=== PATIENT | male | born 1975 | race Caucasian/White ===

== ENCOUNTER → 2021-06-03 11:07 | Outpatient (CLI) | payer BC, SELFPAY ==
--- NOTE | ~2021-06-03 | MR_ITS ---
EXAMINATION: MR lumbar spine wo con DATE: 06/03/2021 11:46 INDICATION: Low back pain with sciatica. TECHNIQUE: Magnetic resonance imaging (MRI) of the lumbar spine was performed without intravenous con trast. Sequences included sagittal T2-weighted FSE, sagittal T2-weighted FS FSE, sagittal T1-weighted FSE, and axial T2-weighted FSE. COMPARISON: None FINDINGS: There is 5 degrees dextrocurvature of thoracolumbar spine. There are Schmorl's nodes at all levels. There is mildly decreased disc height at L4-L5. The distal spinal cord signal intensity is n ormal. The conus medullaris is at L1-L2. The following disc levels are specifically discussed: L1-L2: The disc is bulging. There is mild bilateral facet joint osteoarthritis. There is mild right a nd moderate left neural foraminal stenosis. There is mild central canal stenosis. L2-L3: The disc is mildly bulging. There is mild bilateral facet joint osteoarthritis. There is mild bilateral neural foraminal stenosis. There is no central canal stenosis. L3-L4: The disc is mildly bulging. There is moderate bilateral facet joint osteoarthritis. There is m ild bilateral neural foraminal stenosis. There is mild central canal stenosis. L4-L5: The disc is bulging and has an annular fissure. There is mild bilateral facet joint osteoarthr itis. There is moderate right and mild left neural foraminal stenosis. There is mild central canal st enosis. L5-S1: The disc is mildly bulging. There is mild bilateral facet joint osteoarthritis. There is mild left neural foraminal stenosis. There is mild central canal stenosis. IMPRESSION: 1. Moderate lumbar spondylosis. Reviewed, dictated and finalized at location A.
== END ==
PROVIDERS: PCP Internal Medicine; Visit Provider Physician Assistant Medical
DX: M54.40 Lumbago with sciatica, unspecified side (principal); M47.816 Spondylosis without myelopathy or radiculopathy, lumbar region
CPT/HCPCS: 72148

== ENCOUNTER 2023-07-10 11:05 | Outpatient (CLI) | payer BC, SELFPAY ==
--- NOTE | ~2023-07-10 | US_ITS ---
. US venous doppler [facility] DATE: 07/10/2023 11:48 INDICATION: Left lower leg pain TECHNIQUE: Real-time and color flow imaging and Doppler analysis of the veins of the left lower extre mity COMPARISON: None FINDINGS: The left greater saphenous vein is patent. There is spontaneous and phasic flow and normal augmentation and compression of the deep veins of the left lower extremity. IMPRESSION: No evidence of deep venous thrombosis of the left lower extremity Reviewed, dictated and finalized at Location A. Reviewed, dictated and finalized at location L.
[2023-07-10 12:19] LABS: Basophils Percent Auto 0.3 % (0.2-1.2); Eosinophils Absolute Auto 0.1 K/mm3 (0-0.3); Eosinophils Percent Auto 0.7 % (0-4.4); Hematocrit 48.6 % (42.0-52.0); Hemoglobin 16.5 g/dL (14.0-18.0); Immature Granulocyte Absolute 0.04 K/mm3 (0.00-0.031); Immature Granulocyte Percent A 0.5 % (0-0.5); Lymphocytes Percent Auto 17.2 % (18.3-44.2); Mean Corpuscular Volume 94.2 fl (80-100); Mean Platelet Volume 9.4 fl (7.4-10.4); Monocytes Absolute Auto 0.9 K/mm3 (0.1-0.6); Monocytes Percent Auto 11.9 % (2.6-8.5); Neutrophils Absolute Auto 5.3 K/mm3 (1.3-6.7); Neutrophils Percent Auto 69.4 % (45.5-73.1); Platelet Count Result 243 k/mm3 (150-375); Red Blood Count 5.16 M/mm3 (4.6-6.20); Red Cell Distribution Width 12.2 % (11.5-14.5); White Blood Count 7.6 K/mm3 (4.5-10.0)
[2023-07-10 12:33] LABS: Alanine Aminotransferase 21 U/L (6-50); Albumin Level 4.3 g/dL (3.5-5.1); Alkaline Phosphatase 65 U/L (38-126); Anion Gap 6 mmol/L (8-16); Aspartate Amino Transferase 30 U/L (17-59); Bilirubin,Total 0.8 mg/dL (0.2-1.3); Blood Urea Nitrogen 14 mg/dL (9-20); Calcium 9.3 mg/dL (8.4-10.2); Carbon Dioxide 30 mmol/L (22-30); Chloride 94 mmol/L (98-107); Estimated Glomerular Filt Rate > 60; Glucose 100 mg/dL (65-110); Lactate Dehydrogenase 210 U/L (120-246); Potassium 3.7 mmol/L (3.4-5.0); Sodium 130 mmol/L (137-145)
== END 2023-07-10 11:06 | disposition home or self-care (01) ==
PROVIDERS: PCP Physician Assistant Medical; Visit Provider Physician Assistant Medical
DX: L03.116 Cellulitis of left lower limb (principal); M79.89 Other specified soft tissue disorders; M79.662 Pain in left lower leg
CPT/HCPCS: 36415; 80053; 83615; 85025; 93971

== ENCOUNTER 2023-07-11 12:34 | Observation (INO) | payer BC, SELFPAY ==
[2023-07-11] VITALS (16 sets, daily range): BP systolic 118–149; BP diastolic 80–88; PULSE 69–76; RESP 16–19; TEMP 36.3–36.7; O2SAT 96–100; BMI 29.1
[2023-07-11 13:28] LABS: Basophils Percent Auto 0.3 % (0.2-1.2); Eosinophils Percent Auto 0.4 % (0-4.4); Hematocrit 45.8 % (42.0-52.0); Hemoglobin 15.8 g/dL (14.0-18.0); Immature Granulocyte Absolute 0.03 K/mm3 (0.00-0.031); Immature Granulocyte Percent A 0.4 % (0-0.5); Lymphocytes Absolute Auto 1.27 K/mm3 (0.9-3.2); Lymphocytes Percent Auto 17.1 % (18.3-44.2); Mean Corpuscular HGB Conc 34.5 g/dl (32-36); Mean Corpuscular Hemoglobin 32.4 pg (26-34); Mean Corpuscular Volume 93.9 fl (80-100); Mean Platelet Volume 8.9 fl (7.4-10.4); Monocytes Absolute Auto 1.3 K/mm3 (0.1-0.6); Monocytes Percent Auto 17.3 % (2.6-8.5); Neutrophils Absolute Auto 4.8 K/mm3 (1.3-6.7); Neutrophils Percent Auto 64.5 % (45.5-73.1); Platelet Count Result 278 k/mm3 (150-375); Red Blood Count 4.88 M/mm3 (4.6-6.20); Red Cell Distribution Width 12.3 % (11.5-14.5); White Blood Count 7.4 K/mm3 (4.5-10.0)
--- NOTE | 2023-07-11 13:36 | ED.EXTPRO ---
HPI - Extremity Problem General Chief complaint: Extremity Problem,Nontraumatic Stated complaint: left leg red and swelling Time Seen by Provider: 07/11/23 12:48 History of Present Illness HPI Narrative: Patient is a 48-year-old male who presents ER with discoloration of his left lower extremity. It is located mainly over the turk. He developed 3 days ago. He saw his PCP yesterday and received an injection of Rocephin. He returns today to have a second injection but his primary care physician decided he needed to come to the ER for further evaluation. They did draw a line around the area yesterday and it does appear that the redness has spread beyond the margins. He is having no fevers or chills or sweats. The skin is tender and blanching and warm. It is not weeping. There are areas of bruising noted. Patient denies any trauma to his leg. He had an ultrasound yesterday to rule out a DVT. Related Data Allergies Allergy/AdvReac Type Severity Reaction Status Date / Time fexofenadine [From Mahnaz-D] AdvReac Unknown Headache Verified 07/11/23 18:44 pseudoephedrine AdvReac Unknown Headache Verified 07/11/23 18:44 [From Mahnaz-D] penicillin Allergy Unknown Unknown Uncoded 07/11/23 11:42 Review of Systems Review of Systems: All systems reviewed & are unremarkable except as noted in HPI and below Constitutional: Constitutional: Denies chills, Denies fatigue and Denies fever(s) ENT: Denies nasal congestion and Denies sore throat Cardiovascular: Cardiovascular: Denies chest pain, Denies rapid heart rate and Denies radiating jaw, neck or arm pain Respiratory: Respiratory: Denies cough and Denies dyspnea Gastrointestinal: Gastrointestinal: Denies abdominal pain, Denies nausea and Denies vomiting Integumentary/Breasts: Skin/Breast: Denies pruritus, Reports erythema, Reports rash and Denies skin ulcer PMFSH Past Medical History Medical History Anxiety Depression Neuropathy Thrombophlebitis of right leg (~2019) Surgical History Surgical History History of neck surgery C5-6 disc replacement Social History Social History Smoking packs per day: 0.5 Smoking cigarettes per day: 10.0 Years smoked: 20 Smoking pack-years: 10.00 Smoking status: Light tobacco smoker Tobacco type: cigarettes Second hand tobacco smoke exposure: Yes Smoking end date: 09/10/09 Alcohol intake: never Drinks per week: 12 Substance use: never Substance use type: does not use Lack of Transportation: No Lack of Food: Never True Current Housing: I Have Housing Concerned About Future Housing: No Difficulty Paying Gas/Electric Bills: No Difficulty Paying for Meds: No Currently Unemployed: No Education: Don't Know Difficulty w/ Childcare or Family Care: No Living arrangements: with family Occupation/Education: occupation Gender identity (if verbalized by the patient): Male Sexual Orientation (if Verbalized by the Patient): Straight or Heterosexual Spiritual care concerns: No Exam Narrative: GENERAL: Well-appearing, well-nourished, and in no acute distress. HEAD: Normocephalic, atraumatic. ENT: Mucous membranes moist. CHEST: Clear to auscultation. No respiratory distress. HEART: Regular rate and rhythm. Normal peripheral pulses. ABDOMEN: Soft, nontender, nondistended. EXTREMITIES: Normal range of motion. No edema. SKIN: Warm, dry. Erythematous blanching rash to the left turk extending beyond the previously marked margins. No vesicles or pustules. The central area does demonstrate some bruising. There is 1 large confluent area but then a few separate patches that extend off from it. No lymphangitic streaking. NEURO: Alert and oriented x3. PSYCH: Normal mood and affect. Course Course Emergency Course: Admit for failure o
[2023-07-11 13:39] LABS: Alanine Aminotransferase 21 U/L (6-50); Alkaline Phosphatase 66 U/L (38-126); Anion Gap 5 mmol/L (8-16); Aspartate Amino Transferase 26 U/L (17-59); Bilirubin,Total 0.8 mg/dL (0.2-1.3); Blood Urea Nitrogen 9 mg/dL (9-20); Calcium 9.2 mg/dL (8.4-10.2); Carbon Dioxide 31 mmol/L (22-30); Chloride 98 mmol/L (98-107); Estimated CRCL calculation 88 ml/min; Estimated Glomerular Filt Rate > 60; Glucose 95 mg/dL (65-110); Potassium 3.7 mmol/L (3.4-5.0); Sodium 134 mmol/L (137-145)
[2023-07-11 14:48] LABS: Prothrombin Time 13.4 Seconds (11.1-14.7)
[2023-07-11 14:49] LABS: Partial Thromboplastin Time 32.8 SECONDS (22.3-36.8)
--- NOTE | 2023-07-11 18:42 | ADMGEN ---
This patient, Travis Martinez, was admitted to 2 Medical Room 259-01. Patient/family oriented to hospital policies and general routines including ID bracelet, bed and alarms, visiting hours, pain management, procedures, bathroom and other care routines, personal items, smoking policy, room service/diet, and visiting hours. Information on how to activate the Rapid Response Team has been discussed. Patient/Family are encouraged to report perceived risks to care and to ask questions if they do not understand what they are told or what they should do.
--- NOTE | 2023-07-11 20:58 | PM.IMHP ---
H&P: HPI History of Present Illness Date/Time: 07/11/23 20:58 Chief Complaint: Left lower extremity redness, failed outpatient antibiotic therapy Narrative: HPI Narrative: Patient is a 48-year-old male who presents ER with discoloration of his left lower extremity.? It is located mainly over the turk.? He developed 3 days ago.? He saw his PCP yesterday and received an injection of Rocephin.? He returns today to have a second injection but his primary care physician decided he needed to come to the ER for further evaluation.? They did draw a line around the area yesterday and it does appear that the redness has spread beyond the margins.? He is having no fevers or chills or sweats.? The skin is tender and blanching and warm.? It is not weeping.? There are areas of bruising noted.? Patient denies any trauma to his leg.? He had an ultrasound yesterday to rule out a DVT. Received vancomycin IV in the ER, on areas of redness has improved at the time I saw this patient. Review of Systems Review of Systems: All systems reviewed & are unremarkable except as noted in HPI and below PMFSH Past Medical History Medical History Anxiety Depression Neuropathy Thrombophlebitis of right leg (~2019) Surgical History Surgical History History of neck surgery C5-6 disc replacement Social History Social History Smoking packs per day: 0.5 Smoking cigarettes per day: 10.0 Years smoked: 20 Smoking pack-years: 10.00 Smoking status: Light tobacco smoker Tobacco type: cigarettes Second hand tobacco smoke exposure: Yes Smoking end date: 09/10/09 Alcohol intake: never Drinks per week: 12 Substance use: never Substance use type: does not use Lack of Transportation: No Lack of Food: Never True Current Housing: I Have Housing Concerned About Future Housing: No Difficulty Paying Gas/Electric Bills: No Difficulty Paying for Meds: No Currently Unemployed: No Education: Don't Know Difficulty w/ Childcare or Family Care: No Living arrangements: with family Occupation/Education: occupation Gender identity (if verbalized by the patient): Male Sexual Orientation (if Verbalized by the Patient): Straight or Heterosexual Spiritual care concerns: No Meds Home Medications and Allergies Home Medications Medication Instructions Recorded Confirmed Type alprazolam 0.25 mg tablet (Xanax) 0.25 mg PO BID #60 tabs 10/30/22 07/11/23 Rx duloxetine 60 mg capsule,delayed 60 mg PO DAILY #90 caps 04/13/23 07/11/23 Rx release gabapentin 300 mg capsule 300 mg PO TID #270 caps 04/23/23 07/11/23 Rx Allergies Allergy/AdvReac Type Severity Reaction Status Date / Time fexofenadine [From Mahnaz-D] AdvReac Unknown Headache Verified 07/11/23 18:44 pseudoephedrine AdvReac Unknown Headache Verified 07/11/23 18:44 [From Mahnaz-D] penicillin Allergy Unknown Unknown Uncoded 07/11/23 11:42 Vital Signs Vital Signs - 24 hr 07/11/23 12:42 07/11/23 13:21 07/11/23 13:22 Temperature 97.3 F L Pulse Rate 76 Respiratory Rate 17 Blood Pressure 149/84 H 122/88 Pulse Oximetry 100 98 100 Oxygen Delivery Room Air 07/11/23 13:30 07/11/23 13:31 07/11/23 14:18 Temperature Pulse Rate Respiratory Rate Blood Pressure 124/88 Pulse Oximetry 99 99 100 Oxygen Delivery 07/11/23 14:30 07/11/23 14:31 07/11/23 15:00 Temperature Pulse Rate Respiratory Rate Blood Pressure 122/86 Pulse Oximetry 96 100 100 Oxygen Delivery 07/11/23 15:01 07/11/23 15:40 07/11/23 16:01 Temperature Pulse Rate 71 72 69 Respiratory Rate 18 17 18 Blood Pressure 134/83 118/85 Pulse Oximetry 100 100 100 Oxygen Delivery 07/11/23 16:02 07/11/23 16:39 07/11/23 18:53 Temperature Pulse Rate 69 Respiratory Rate 19 19 Blo
[2023-07-12 05:37] VITALS: BP 120/80; PULSE 63; RESP 16; TEMP 36.6; O2SAT 99
[2023-07-12 06:09] LABS: Basophils Percent Auto 0.5 % (0.2-1.2); Eosinophils Absolute Auto 0.2 K/mm3 (0-0.3); Eosinophils Percent Auto 2.3 % (0-4.4); Hematocrit 45.3 % (42.0-52.0); Hemoglobin 15.4 g/dL (14.0-18.0); Immature Granulocyte Absolute 0.02 K/mm3 (0.00-0.031); Immature Granulocyte Percent A 0.3 % (0-0.5); Lymphocytes Absolute Auto 2.09 K/mm3 (0.9-3.2); Lymphocytes Percent Auto 27.1 % (18.3-44.2); Mean Corpuscular Hemoglobin 32.6 pg (26-34); Mean Corpuscular Volume 95.8 fl (80-100); Mean Platelet Volume 9.1 fl (7.4-10.4); Monocytes Absolute Auto 1.2 K/mm3 (0.1-0.6); Monocytes Percent Auto 15.3 % (2.6-8.5); Neutrophils Absolute Auto 4.2 K/mm3 (1.3-6.7); Neutrophils Percent Auto 54.5 % (45.5-73.1); Platelet Count Result 290 k/mm3 (150-375); Red Blood Count 4.73 M/mm3 (4.6-6.20); Red Cell Distribution Width 12.3 % (11.5-14.5); White Blood Count 7.7 K/mm3 (4.5-10.0)
[2023-07-12 06:33] LABS: Anion Gap 4 mmol/L (8-16); Blood Urea Nitrogen 9 mg/dL (9-20); Carbon Dioxide 32 mmol/L (22-30); Chloride 99 mmol/L (98-107); Estimated CRCL calculation 97 ml/min; Estimated Glomerular Filt Rate > 60; Glucose 99 mg/dL (65-110); Potassium 3.6 mmol/L (3.4-5.0); Sodium 135 mmol/L (137-145)
[2023-07-12 08:43] VITALS: RESP 16; O2SAT 99
[2023-07-12] MEDS: DULoxetine HCL 60 MG CAPSULE.DR PO (08:43)
[2023-07-12] MEDS: GABAPENTIN 300 MG CAPSULE PO ×3 (08:43→16:41)
[2023-07-12] MEDS: ALPRAZolam (*CRX) 0.25 MG TABLET PO ×2 (08:43→16:41)
--- NOTE | 2023-07-12 10:41 | PC.NURSE ---
On 07/12/23, the student, [Emmanuel Strickland], provided care and completed [facility]. I have reviewed the student's documentation and agree with the findings.
--- NOTE | 2023-07-12 12:59 | PCCCNOTE ---
On 07/12/23, the student, Marylou Tejeda, provided care and completed [facility] documentation on this patient. I have reviewed the student's documentation and agree with the findings.
[2023-07-12 14:00] VITALS: BP 124/78; PULSE 60; RESP 17; TEMP 36.5; O2SAT 99
--- NOTE | 2023-07-12 17:13 | PM.IMPN ---
Progress Note: A&P Assessment and Plan (1) Cellulitis of left leg: Code(s): L03.116 - Cellulitis of left lower limb Status: Acute Plan 48M w/ PMH anxiety and depressions presents with LLE cellulitis, nonpurulent, failed outpatient antibiotics. >Admitted on 07/11/23 1) LLE cellulitis, non purulent - received IV ceftriaxone as outpatient, did not improve. vancomycin started on admission, pt doesn't think its better but it is much improved compared to the borders marked when he saw his PCP the day prior to admission. I asked the nurse to remark the borders. Cont vancomycin as he otherwise does not appear septic, likely d'c tomorrow if improved full code Subjective Date/time seen: 07/12/23 17:13 Interval history: NAOE. patient reports no improvement since the day prior Review of Systems Review of Systems: All systems reviewed & are unremarkable except as noted in HPI and below Exam Const: General: comfortable Eyes: Pupils: Equal, round and reactive pupils present Neck: Neck: supple Resp: Effort & Inspection: normal respiratory effort Auscultation: clear to auscultation bilaterally Cardio: Rate: regular rate Rhythm: regular rhythm Heart sounds: no gallops, no murmurs and no rubs Skin: General skin exam: erythema Extrem: General: no edema Objective Data Vital Signs Vital Signs: Vital Signs - 24 hr 07/11/23 18:53 07/11/23 21:45 07/12/23 05:37 Temperature 98.0 F 97.8 F Pulse Rate 69 71 63 Respiratory Rate 19 16 16 Blood Pressure 132/80 120/80 Pulse Oximetry 100 99 99 Oxygen Delivery Room Air 07/12/23 08:43 07/12/23 14:00 Temperature 97.7 F Pulse Rate 60 Respiratory Rate 16 17 Blood Pressure 124/78 Pulse Oximetry 99 99 Oxygen Delivery Room Air Intake/Output Intake/Output: Intake & Output 07/09/23 07/10/23 07/11/23 07/12/23 23:59 23:59 23:59 23:59 Intake Total 500 1680 Balance 500 1680 Meds/Results Medications: Active Medications Generic Name Dose Route Start Last Admin Trade Name Freq PRN Reason Stop Dose Admin Acetaminophen 650 mg 07/11/23 15:53 Acetaminophen 325 Mg Tablet PO Q4H PRN Mild Pain (1-3) or Fever Hydrocodone Bitart/Acetaminophen 1 tab 07/11/23 15:53 Hydrocodone/Acetaminophen (*Crx) 5-325 Mg Tablet PO Q4H PRN Pain Rated 4-6 Alprazolam 0.25 mg 07/12/23 09:00 07/12/23 16:41 Alprazolam (*Crx) 0.25 Mg Tablet PO 0.25 mg BID MERVAT Administration Duloxetine HCl 60 mg 07/12/23 09:00 07/12/23 08:43 Duloxetine Hcl 60 Mg Capsule.Dr PO 60 mg DAILY MERVAT Administration Gabapentin 300 mg 07/12/23 09:00 07/12/23 16:41 Gabapentin 300 Mg Capsule PO 300 mg TID MERVAT Administration Vancomycin HCl 1,500 mg in 500 mls @ 250 mls/hr 07/12/23 03:00 07/12/23 16:26 Vancomycin 1,500 Mg/D5w 500 Ml IVPB Infused Q12H MERVAT Infusion Morphine Sulfate 4 mg 07/11/23 15:53 Morphine Sulfate (*Crx) 4 Mg/Ml Inj IV PUSH Q2H PRN Pain Rated 7-10 Ondansetron HCl 4 mg 07/11/23 15:53 Ondansetron Inj 4 Mg/2 Ml Vial IV PUSH Q4H PRN Nausea Labs Labs: Laboratory Results - last 24 hr 07/12/23 05:33 WBC 7.7 RBC 4.73 Hgb 15.4 Hct 45.3 MCV 95.8 MCH 32.6 MCHC 34.0 RDW 12.3 Plt Count 290 MPV 9.1 Immature Gran % (Auto) 0.3 Neut % (Auto) 54.5 Lymph % (Auto) 27.1 [place] % (Auto) 15.3 H Eos % (Auto) 2.3 Baso % (Auto) 0.5 Lymph # (Auto) 2.09 [place] # (Auto) 1.2 H Eos # (Auto) 0.2 Baso # (Auto) 0.0 Abs Immat Gran (auto) 0.02 Absolute Neuts (auto) 4.2 Absolute Nucleated RBC 0.0 Nucleated RBC % 0.0 Sodium 135 L Potassium 3.6 Chloride 99 Carbon Dioxide 32 H Anion Gap 4 L BUN 9 Creatinine 0.90 Estim Creat Clear Calc 97 Estimated GFR > 60 Glucose 99 Calcium 9.0
[2023-07-12 20:35] VITALS: BP 115/72; PULSE 67; RESP 14; TEMP 37; O2SAT 99
[2023-07-13 02:12] LABS: Hematocrit 44.9 % (42.0-52.0); Hemoglobin 15.3 g/dL (14.0-18.0); Mean Corpuscular HGB Conc 34.1 g/dl (32-36); Mean Corpuscular Hemoglobin 32.4 pg (26-34); Mean Corpuscular Volume 95.1 fl (80-100); Mean Platelet Volume 8.6 fl (7.4-10.4); Platelet Count Result 337 k/mm3 (150-375); Red Blood Count 4.72 M/mm3 (4.6-6.20); Red Cell Distribution Width 12.4 % (11.5-14.5); White Blood Count 7.9 K/mm3 (4.5-10.0)
[2023-07-13 02:23] LABS: Estimated CRCL calculation 97 ml/min; Estimated Glomerular Filt Rate > 60
[2023-07-13 02:31] LABS: Vancomycin Trough 13.4 ug/mL (10.0-20.0)
[2023-07-13 05:15] VITALS: BP 112/72; PULSE 60; RESP 16; TEMP 36.8; O2SAT 99
[2023-07-13] MEDS: GABAPENTIN 300 MG CAPSULE PO ×2 (09:08→12:07)
[2023-07-13] MEDS: DULoxetine HCL 60 MG CAPSULE.DR PO (09:08)
[2023-07-13] MEDS: ALPRAZolam (*CRX) 0.25 MG TABLET PO (09:08)
[2023-07-13 09:47] VITALS: O2SAT 99
--- NOTE | 2023-07-13 13:52 | PM.DS ---
DS: Admitting Diagnosis Discharge Date 07/13/23 Admitting Diagnosis cellulitis DS: Discharge Diagnosis Discharge Diagnosis (1) Cellulitis of left leg: Code(s): L03.116 - Cellulitis of left lower limb Status: Acute DS: Summary Hospital Course Hospital Course: A pleasant 48M w/ PMH depression , neuropathy, thrombophlebitis of R leg, anxiety presented with cellulitis. It is nonpurulent, which failed outpatient treatment with IV ceftriaxone x1. He was admitted and treated successfully without any evidence of sepsis, with vancomycin. Considering vancomycin was therapeutic, he is being dc'ed with clindamycin for another 7 days, for 10 days total. Discharge to home in stable condition. He is to follow up with PCP within a week. He remained full code during his stay. Time Spent with Patient Time attestation: Total time spent providing and/or coordinating discharge services: Exam Const: General: cooperative and no acute distress Resp: Effort & Inspection: normal respiratory effort Auscultation: clear to auscultation bilaterally Cardio: Rate: regular rate Rhythm: regular rhythm Heart sounds: S1 normal heart sound present and S2 normal heart sound present GI: GI Palp: No abdominal tenderness Auscultation: normal bowel sounds Skin: Other: LLE, greatly improved from markings from outpatient, slightly improved from 07/12 outline marking, erythema still present over healing excoriation. no TTP no edema DS: Data Data Completed and Pending Labs on day of discharge: Labs from last 24 hours 07/13/23 02:03 WBC 7.9 RBC 4.72 Hgb 15.3 Hct 44.9 MCV 95.1 MCH 32.4 MCHC 34.1 RDW 12.4 Plt Count 337 MPV 8.6 Creatinine 0.90 Estim Creat Clear Calc 97 Estimated GFR > 60 Vancomycin Trough 13.4 Discharge Plan Discharge Attending physician on discharge: Letha Washington Discharging Clinician: Letha Washington Patient Disposition: Home, Self-Care Activity: may shower Diet: regular Patient Instructions: Antibiotic Form, How to Stop Smoking (DC), Cellulitis (GEN) Stand Alone Forms: General Discharge Information Follow-up/Referrals: Idalia Hernandez PA-C [Primary Care Provider] - 1 Week (f/u on cellulitis) Discharge Medications: New clindamycin HCl 300 mg capsule 450 mg PO Q8H 7 Days Qty: 32 0RF Continued alprazolam [Xanax] 0.25 mg tablet 0.25 mg PO BID Qty: 60 2RF duloxetine 60 mg capsule,delayed release(DR/EC) 60 mg PO DAILY Qty: 90 1RF gabapentin 300 mg capsule 300 mg PO TID Qty: 270 1RF Date of admission: 07/11/23 18:41 Primary Care Provider: Idalia Hernandez I. Admitting Provider: Keshia Salgado Attending physician on admission: Keshia Salgado Condition: Stable
[2023-07-13 14:03] VITALS: BP 125/74; PULSE 66; RESP 18; TEMP 36.7; O2SAT 99
== END 2023-07-13 14:18 | disposition home or self-care (01) ==
LOC: ANHED 13:16 → ANHIMU 18:15 → ANH2MED 21:37
PROVIDERS: General Practice; Student in an Organized Health Care Education/Training Program; Admitting Provider Student in an Organized Health Care Education/Training Program; Emergency Provider Emergency Medicine; PCP Physician Assistant Medical; Visit Provider Student in an Organized Health Care Education/Training Program
DX: L03.116 Cellulitis of left lower limb (principal); F41.9 Anxiety disorder, unspecified; F32.A Depression, unspecified; G62.9 Polyneuropathy, unspecified; Z86.72 Personal history of thrombophlebitis; F17.210 Nicotine dependence, cigarettes, uncomplicated
CPT/HCPCS: 36415; 80048; 80053; 80202; 82565; 83605; 85025; 85027; 85610; 85730; 96365; 96366; 99285; A9270; G0378; J3370